=== PATIENT | male | born 1970 | race Caucasian/White ===

== ENCOUNTER 2017-04-04 23:38 | Emergency (ER) | payer OTHER ==
[2017-04-04 23:54] VITALS: BP 140/81; PULSE 88; TEMP 98.2; BMI 25.0
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
[2017-04-05] MEDS ORDERED: IBUPROFEN 400 MG TABLET (FP) PO ONE ×2 (01:50→02:03)
[2017-04-05] MEDS ORDERED: METHOCARBAMOL 500 MG TABLET PO ONE (01:50)
[2017-04-05] MEDS ORDERED: METHOCARBAMOL 500 MG TABLET ONE (02:03)
== END 2017-04-05 02:26 | disposition home or self-care (01) ==
LOC: JER 23:38
DX: R51 Headache (principal); V43.52XA Car driver injured in collision with other type car in traffic accident, initial encounter; Y92.414 Local residential or business street as the place of occurrence of the external cause; Y99.0 Civilian activity done for income or pay; Y93.89 Activity, other specified
CPT/HCPCS: 70450-TC; 72100-TC; 72125-TC; 99282-25

== ENCOUNTER 2023-03-27 04:24 | Day surgery (SDC) | payer BC ==
[2023-03-25 13:19] VITALS: BMI 25.0
[2023-03-27 09:20] VITALS: TEMP 98
[2023-03-27 10:00] VITALS: RESP 18
[2023-03-27 10:10] VITALS: BP 113/72; PULSE 54
== END 2023-03-27 10:11 | disposition home or self-care (01) ==
LOC: JASU-ENDO 04:24
PROVIDERS: ATTEND Internal Medicine Gastroenterology
PROC: 0DBL8ZX Excision of Transverse Colon, Via Natural or Artificial Opening Endoscopic, Diagnostic (ICD-10-PCS; 2023-03-27)
PROC: 0DBK8ZX Excision of Ascending Colon, Via Natural or Artificial Opening Endoscopic, Diagnostic (ICD-10-PCS; 2023-03-27)
PROC: 0DBN8ZX Excision of Sigmoid Colon, Via Natural or Artificial Opening Endoscopic, Diagnostic (ICD-10-PCS; principal; 2023-03-27 09:00)
DX: Z12.11 Encounter for screening for malignant neoplasm of colon (principal); D12.2 Benign neoplasm of ascending colon; D12.3 Benign neoplasm of transverse colon; D12.5 Benign neoplasm of sigmoid colon; K64.8 Other hemorrhoids
CPT/HCPCS: 88305-TC

== ENCOUNTER 2024-03-31 04:19 | Day surgery (SDC) | payer BC ==
[2024-03-27 08:44] VITALS: BMI 27.4
[2024-03-31 09:40] VITALS: RESP 16; TEMP 97.8
[2024-03-31 10:08] VITALS: BP 108/67; PULSE 55
== END 2024-03-31 10:11 | disposition home or self-care (01) ==
LOC: JASU-ENDO 04:19
PROVIDERS: ATTEND Internal Medicine Gastroenterology
PROC: 0DBL8ZX Excision of Transverse Colon, Via Natural or Artificial Opening Endoscopic, Diagnostic (ICD-10-PCS; principal; 2024-03-31 09:00)
DX: Z12.11 Encounter for screening for malignant neoplasm of colon (principal); K64.8 Other hemorrhoids; Z86.010 Personal history of colon polyps; Z80.0 Family history of malignant neoplasm of digestive organs
CPT/HCPCS: 88305-TC